=== PATIENT | male | born 1980 | race Caucasian/White ===

== ENCOUNTER 2024-04-17 08:58 | Outpatient (RCR) | payer OTHER, SELFPAY ==
--- NOTE | 2024-04-19 21:28 | HP.PTEVAL_ITS ---
Patient's Visit Information Visit Information Visit Information: OB WAGGONER is a 43 year old M referred to Physical Therapy by Marty Tsai PA-C with a diagnosis of OA R SHLD. Date of Evaluation: 04/17/24 Physical Therapist: Carina Braswell PT, Cert MDT Visit Plan Frequency: 2x /Week Duration: 2-4 Weeks Plan: POSTURE TRAINING. INSTRUCTION IN PROPER WORK STATION SET UP AND BODY MECHANICS WITH ADL'S AND RECREATIONAL ACTIVITIES. R UE STRENGTHENING AND WITH FOCUS ON SCAPULAR STRENGTH AND STABILIZATION. HEP INSTRUCTION. SEE MANUAL THER AND MODALITIES IN INTERVENTIONS BELOW. 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 DENIES NUMBNESS AND TINGLING. INTERMITTENT R NECK PAIN Present since: ABOUT 6 MONTHS AGO Pain Scale: WORST 7/10, LEAST 0/10 Currently: 0/10 Commenced as a result of: NO APPARENT REASON BUT DID BAIL HAY FOR ABOUT 3 HOURS AND SOME TIME AFTER THAT NOTICED THE PAIN. Symptoms at onset: R SHLD ACHE Worse: USING A COMPUTER (SWITCHED TO L HAND FOR MOUSE AND TYPING), PLAYING WITH 5 AND 7 YEAR OLD KIDS, LYING ON R SHLD AT NIGHT, USE OF R UE IN GENERAL Better: AVOIDING ABOVE, IBUPROFEN Disturbed sleep: YES Previous history/Previous treatment: UNREMARKABLE This episode: IBUPROFEN, PREDNISONE - ON APPROX DAY 4. SEEMS TO HAVE HELPED BU T DAUGHTER IS ALSO AWAY AND HAS BEEN RESTING HIS ARM MORE. ALSO GIVEN PRESCRIPTION FOR meloxicam to start when concludes prednisone. Dizziness: YES - CHRONIC Tinnitus: NO Nausea: CHRONIC - INTERMITTENT Shortness of Breath: NO Difficulty Swollowing: NO Gait: NORMAL Accidents: NO Unexplained weight loss: NO Imaging: YES - SMALL AC separation AND MINOR ARTHRITIS. OTHER: PHYSICIAN FOLLOW UP NEEDED. PMH: MILD ANXIETY AND H/O PANIC ATTACKS. Objective Objective: Sitting Posture/Standing Posture: GOOD. NO Torticollis. MILD FH AND RSH. Other Observations: INDEP GAIT AND TRANSFERS Sensory deficit: LUANN UE LIGHT TOUCH SENSATION GROSSLY INTACT AND SYMMETRICAL ROM deficit: LUANN UE ROM GROSSLY WFL AND PAINFREE WITH TESTING. Motor deficit: R UE STRENGTH TESTING WAS APPROACHED WITH CAUTION DUE TO PATIENT BEING ON PREDNISONE AND ADL'S PROVOKING UP TO 7/10 PAIN. FLEXION AND EXTENSION TESTING EVEN SUB MAX WITH STRAIN GAUGE THEREFORE THIS PT DEFERRED FUTHER STRAIN GAUGE TESTING. R SHLD STRENGTH IS AT LEAST 4-/5 WITH MMT'ING, R ELBOW 4/5 AND R PALLIATIVE NURSE 91 LBS COMPARED TO 87 LBS L PALLIATIVE NURSE. L UE STRAIN GAUGE RESULTS IN #'S OF PEAK FORCE: SHLD FLEX 42, EXT 44.2, ABD, 45.7, EXT ROT 29.9, IR 32.3, ELBOW FLEX 39.3, AND ELBOW EXT 34.5. Cervical Mvmt Loss: Flex: NIL Pro: NIL Ext: NIL Ret: NIL RSB: NIL LSB: NIL R Rot: NIL L Rot: NIL FULL NECK ROM WITHOUT C/O PAIN Postural strength: FAIR Palpation: NO ACUTE NECK OR SHLD TENDERNESS. Balance/Special Test Scores Quick DASH Score: 22.7250 Goals Goal 1:: PATIENT WILL REPORT AT LEAST 75% DECREASED PAIN IN R SHLD TO HELP ALLOW FOR RETURN TO NORMAL ACTIVITY Goal Time Frame: 4-6 Weeks Goal 2:: PATIENT WILL HAVE R UE STRENGTH WITHIN 10% OF L UE TO AID IN RETURN TO PLOF Goal Time Frame: 4-6 Weeks Goal 3:: PATIENT WILL BE INDEP WITH A HEP FOR CONTINUED IMRPOVEMENT ONCE FORMAL PHYSICAL THERPAY CONCLUDES. Goal Time Frame: 4-6 Weeks Goal 4:: PATIENT WILL HAVE AT LEAST A 5 POINT IMPROVEMENT IN QUICK DASH SCORE. Goal Time Frame: 4-6 Weeks Rehabilitation Potential Physical Therapy Diagnosis: R SHLD PAIN AND WEAKNESS. MILD POSTURAL TIGHTNESS. Rehabilitation Potential: Excellent Anticipated Interventions Patient/Client Instruction: Educate patient on: Condition, Plan of Care and Risk Factors For the Purpose of:: To improve self management Therapeutic Exercise to Include: Strength training, Body mechanics, Postural training, Flexibilty training, Neuromotor development and Scapular Strength/Stabilization For the Purpose of:: To decrease pain, To improve muscle performance and motor function, To improve performance and independence with ADL's, To improve ability of physical actions for home/community/work/leisure and To increase flexibility/ROM Manual Therapy Techniques to Include: Soft tissue mobilization For the Purpose of:: To decrease pain and To improve nutrient delivery to tissue Cryotherapy (ice pack, ice massage): Yes Thermo therapy (hot pack): Yes Ultrasound (thermal/non thermal): Yes (R SHLD 1.3 W/CM2 X 8 MIN) For the Purpose of:: To decrease pain, To decrease swelling/inflammation and To improve nutrient delivery to tissue Text: Thank you for the opportunity to evaluate your patient. For Medicare and Medicare HMO plans, please review the plan of care and approve it. It will need to be FAXED BACK to us at [phone] for Medicare purposes. For Medicare only, by signing this I certify the plan of care. Please let me know if there are questions or concerns regarding this plan of care. Physician Signature: Date:
== END 2024-04-17 19:00 | disposition home or self-care (01) ==
LOC: PT 08:58
PROVIDERS: PCP Family Medicine; Referring Provider Physician Assistant; Visit Provider Physician Assistant
DX: M19.011 Primary osteoarthritis, right shoulder (principal); M25.511 Pain in right shoulder
CPT/HCPCS: 97162

== ENCOUNTER → 2024-06-19 | Outpatient (CLI) | payer OTHER, SELFPAY ==
[2024-06-19 15:20] LABS: Absolute Lymphocyte Count 1.76 X10^3/uL (0.83-4.51); Absolute Neutrophil Count 2.8 X10^3/uL (2.0-7.7); Basophil# 0.06 X10^3/uL; Basophil% 1.1 % (0-1); Eosinophil# 0.16 X10^3/uL; Hematocrit 45.6 % (40-54); Hemoglobin 15.1 g/dL (13.0-16.5); Lymphocyte # 1.76 X10^3/ul (0.83-4.51); Lymphocyte % 33.1 % (19-41); Mean Corp Hgb Conc 33.1 g/dL (32-36); Mean Corpuscular Hgb 31.2 pg (27.0-32.0); Mean Corpuscular Volume 94.2 fL (80-94); Mean Platelet Vol. 10.8 fl (6.2-12.0); Monocyte# 0.47 X10^3/uL; Monocyte% 8.9 % (0-10); NRBC Flagged by Analyzer 0 % (0-5); Neutrophil # 2.84 X10^3/uL (2.7-7.7); Neutrophil % 53.5 % (47-70); Platelet Count 225 K/mm3 (150-450); RBC Distribution Width CV 12.4 % (11.6-14.6); RBC Distribution Width SD 43.1 fl (35.1-43.9); Red Blood Count 4.84 M/mm3 (4.6-6.2); White Blood Count 5.3 K/mm3 (4.4-11.0)
[2024-06-19 17:24] LABS: ALB/GLOB Ratio 1.3 RATIO (0.9-2.4); AST(SGOT) 12 U/L (15-37); Alanine Aminotransfer ALT/SGPT 20 U/L (16-61); Albumin, Serum 4.2 g/dL (3.2-5.0); Alkaline Phosphatase 54 U/L (45-117); Anion Gap 6 (5-15); BUN 22 mg/dL (7-18); BUN/Creat Ratio 22.1 RATIO (10-20); Calcium,Total 9.4 mg/dL (8.5-10.1); Chloride 107 mmol/L (98-107); Cholesterol 147 mg/dL (200); Creatinine, Serum 0.99 mg/dL (0.70-1.30); EST Glomerular Filtration Rate 86 mL/min (>60); Est Glom Filt Rate - Afr Amer 104 mL/min (>60); Globulin 3.3 g/dL (2.2-4.2); Glucose 109 mg/dL (74-106); High Density Lipoprotein 55 mg/dL; Potassium 4.1 mmol/L (3.5-5.1); Protein, Total 7.5 g/dL (6.4-8.2); Sodium Level 139 mmol/L (136-145); Thyroid Stim Hormone (TSH) 0.591 uIU/mL (0.358-3.740); Triglycerides 59 mg/dL; Very Low Density Lipoprotein 12 mg/dL (5-40)
== END | disposition home or self-care (01) ==
LOC: MTLAB 11:18
PROVIDERS: PCP Family Medicine; Referring Provider Family Medicine; Visit Provider Family Medicine
DX: R53.83 Other fatigue (principal)
CPT/HCPCS: 36415; 80053; 80061; 84443; 85025

== ENCOUNTER 2024-07-22 13:00 | Outpatient (RCR) | payer OTHER, SELFPAY ==
--- NOTE | 2024-07-14 12:55 | HP.PTEVAL_ITS ---
Patient's Visit Information Visit Information Visit Information: BO WAGGONER is a 43 year old M referred to Physical Therapy by Marty Tsai PA-C with a diagnosis of R shoulder OA. Date of Evaluation: 07/01/24 Physical Therapist: Madi Lobato DPT Visit Plan Frequency: 1x/Week Duration: 4 Weeks Plan: 1) RTC, scapular, periscapular strengthening. Patient given phase III RTC strengthening for HEP today. Subjective Subjective: Pt is here today for his initial evaluation with diagnosis of R shoulder OA. Pt. reports having an injection and is overall doing better, but is till having some issues. He was evaluated earlier this year, but then [place]. He reports his main issue is now with wanting to be able to throw with his children. Pt. is sleeping okay, but any over head movements and throwing movements are painful. Pt. denies N/T in either UE. Pt. has not done much strengthening at this point in time. Pain R shoulder: Pain Intensity (Out of 10): 1 Pain Intensity Range: 0 and 4 Comment: increases to 4/10 with throwing. Objective Objective: POSTURE: Pt. has decent posture in stance. Slight FH posture, Normal B shoulder heights noted. PALPATION: Pt. has slight tenderness at biceps region and distal supraspinatus insertion. Pt. has some slight tenderness at R UT region and into his neck as well. NEURO: Pt. has normal sensation and normal DTR of BUEs. ROM: PT. has full ROM of B shoulders and cervical spine without increase in symptoms. MMT: L shoulder: flexion 17#, abd 15#, ER 12#, IR 15#. R shoulder: flexion 14# mild increase Nw, abd 13# mild increase NW, ER 11#, IR 11#. Special Tests R Shoulder External Rotation Lag Test - RC Tear: Negative R Shoulder Supine Impingement Test - RC Tear: Negative R Shoulder Drop Sign - IS Test: Negative R Shoulder Empty Can - SS: Negative R Shoulder Neer - Impingement: Negative R Shoulder Swenson Wilbur - Impingement: Negative Balance/Special Test Scores Quick DASH Score: 20.4525 Goals Goal 1:: LTG: Pt. to be I with HEP. Goal Time Frame: 4-6 Weeks Goal 2:: LTG: Pt. to be able to throw a baseball/football without increase in R shoulder pain. Goal Time Frame: 4-6 Weeks Goal 3:: LTG: Pt. to have increased R shoulder strength by 5# throughout to reduce stress applied to R shoulder with all athletic activities. Goal Time Frame: 4-6 Weeks Rehabilitation Potential Physical Therapy Diagnosis: Pt. has signs and symptoms consistent with R shoulder OA. Pt. didn't have any + signs of significant RTC injury. Pt. does have some issues with end range ER with quick recoil as see in throwing. Less issues with mid range stresses. Pt. would benefit from PT to address the above limitations progressing all of his ability to throw without increase in symptoms. Rehabilitation Potential: Excellent Anticipated Interventions Patient/Client Instruction: Educate patient on: Condition, Plan of Care, Risk Factors and Benefits of Fitness Program For the Purpose of:: To improve decision making, To facilitate caregiver knowledge, To improve self management, To prevent re-injury, To improve ability to perform tasks related to life management and To improve tolerance to ADL's Therapeutic Exercise to Include: Strength training, Power training, Postural training and Scapular Strength/Stabilization For the Purpose of:: To decrease pain, To increase ROM, To improve nutrient delivery to tissue, To improve muscle performance and motor function and To improve health of tissue Text: Thank you for the opportunity to evaluate your patient. For Medicare and Medicare HMO plans, please review the plan of care and approve it. It will need to be FAXED BACK to us at [phone] for Medicare purposes. For Medicare only, by signing this I certify the plan of care. Please let me know if there are questions or concerns regarding this plan of care. Physician Signature: Date:__
== END 2024-07-22 19:00 | disposition home or self-care (01) ==
LOC: PT 13:00
PROVIDERS: PCP Family Medicine; Referring Provider Physician Assistant; Visit Provider Physician Assistant
DX: M19.011 Primary osteoarthritis, right shoulder (principal); M25.511 Pain in right shoulder
CPT/HCPCS: 97110; 97161